=== PATIENT | female | born 1930 | race Caucasian/White ===

== ENCOUNTER 2017-12-15 20:26 | Inpatient (IN) | payer MEDICARE ==
[~2017-12-15] VITALS: Wt 54.4 kg
--- NOTE | ~2017-12-15 | PR ---
[place], [place] PROGRESS NOTE NAME: ROMANA FOX UNIT #: [id number] ROOM: 312 DOCTOR: DAVID RAMIREZ MD BIRTHDATE: [birth year] DOS: 12/21/2017 CHIEF COMPLAINT: "Oh, HI there, how are you." SUMMARY OF THE VISIT: The patient was interviewed as she sat in the dining area. She was pleasant upon approach and engaged readily in conversation with me. Some of it made sense, other times she tended to ramble and did not make sense. Nurses report she seems to alternate, having a good evening where she sleeps well and is not agitated, with an evening when she is not sleeping and she becomes increasingly agitated and sundowns. MENTAL STATUS: She is alert and oriented to person, possibly place, although it is doubtful, certainly not time. Mood does seem to be trending gradually towards euthymia. Affect is more appropriate. There is no manish or hypomania. No gross psychosis. Short term memory is exceedingly poor. PLAN: Her valproic acid level was therapeutic at 76.9, so I will maintain her current level. I will increase Cymbalta to 60 mg in the morning and 30 mg at night, attempting to control pain, improve mood and improve sleep. GFR is normal, so we should safely be able to do so. We will engage in individual and garcia milieu activity, returning to the least restrictive environment when psychiatrically stable. DAVID RAMIREZ MD CM:PNTRANS [id number] DAVID RAMIREZ MD 12/21/17 1316 interface
--- NOTE | ~2017-12-15 | PR ---
[place], [place] PROGRESS NOTE NAME: ROMANA FOX UNIT #: [id number] ROOM: 312 DOCTOR: DAVID RAMIREZ MD BIRTHDATE: [birth year] DOS: 12/27/2017 CHIEF COMPLAINT: The patient was extremely somnolent." SUMMARY OF THE VISIT: The patient was sitting in her Nasreen chair resting. She was extremely somnolent. Multiple attempts to verbally prompt her and then to prompt her physically were met with little to no interaction. The patient did receive a p.r.n. yet again in the middle of the night because of increased agitation. Nurses report that she does tend to be rather drowsy most mornings, but by afternoon, she wakes up and has been able to engage more readily in activities. She does still have her bouts where she becomes very agitated and labile, but they report that the frequency and intensity of these bouts seem to be lessening. The Cymbalta has impacted positively on pain control, which has also decreased some of these bouts. MENTAL STATUS: Limited because of her overall level of somnolence. PLAN: I will go ahead and lower her p.r.n. Ativan from 1 mg p.o. or IM every 4 hours as needed to 0.5 mg p.o. or IM every 4 hours as needed to see if we can strike a balance. She seems extremely sedate each morning and yet requires some type of p.r.n. intervention to prevent harm to self and others in the middle of the night. If we can strike a fine balance, then we will proceed with discharge to the least restrictive environment. DAVID RAMIREZ MD CM:PNTRANS [id number] 1000 DAVID RAMIREZ MD 12/27/17 1000 interface
--- NOTE | ~2017-12-15 | WRIGHTHP ---
[place], [place] PATIENT HISTORY AND PHYSICAL EXAM NAME: ROMANA FOX UNIT #: [id number] ROOM: 312 DOCTOR: DAVID RAMIREZ MD BIRTHDATE: [birth year] DOS: 12/16/2017 CHIEF COMPLAINT: The patient was nonverbal. HISTORY OF PRESENT ILLNESS: This is an 87-year-old white female, resident of [facility], who was sent here on an involuntary basis due to increased level of confusion and agitation. The patient has been actively voicing a wish to and stating that she is depressed and does not want to go on. The patient has either been falling or throwing herself to the ground more frequently there. Some of the behavior seems to stem from a recent switch in long-term care facilities. Since she has been at [facility], these behaviors have been relatively of new onset. The patient has also become verbally and physically aggressive toward staff and has been striking out at staff. Attempts to redirect have been met with her further escalating. She is admitted now to rule out organic factors and to stabilize on medication. PAST MEDICAL HISTORY: Remarkable for gait disturbance, AFib, generalized anxiety disorder, osteoarthritis, vascular dementia, and vitamin D deficiency. MENTAL STATUS: Upon admission, at this point in time as I attempted to engage the patient in conversation, she was nonverbal. DIAGNOSIS: Brief psychotic disorder. PLAN: At this point in time, I will discontinue her Depakote. I did raise it slightly from her level at the intermediate. She does seem to be somewhat somnolent. I will, however, increase her Cymbalta from 30 to 60 mg at bedtime in an effort to combat the depressive symptomatology. We will attempt to engage her in individual and garcia milieu activity with the ultimate plan to return to the least restrictive environment when psychiatrically stable. DAVID RAMIREZ MD CM:HISPHYS:PATIENT HISTORY AND PHYSICAL EXAMINATION 1002 1017 DAVID RAMIREZ MD 12/16/17 1015 interface
--- NOTE | ~2017-12-15 | PR ---
[place], [place] PROGRESS NOTE NAME: ROMANA FOX UNIT #: [id number] ROOM: 312 DOCTOR: DAVID RAMIREZ MD BIRTHDATE: [birth year] DOS: 12/23/2017 CHIEF COMPLAINT: "Good morning." SUMMARY OF THE VISIT: The patient was interviewed as she sat in a Nasreen chair in the dining area. She was initially sleeping, but awoke and engaged in conversation, albeit rather short and simple. She voiced no complaints. She reports sleeping well at night and having breakfast, although she could not tell me what she had for breakfast. MENTAL STATUS: She remains alert and oriented to self. It is unclear if she realizes she is in the hospital. She is certainly not oriented to time. Responses are short and simple. Some of this is because of her somnolence this morning. There was no agitation or aggression. There was no hypomania or manish. There were no auditory or visual hallucinations, delusions or paranoia. Short-term memory has gaps, otherwise she is intact. PLAN: I will renew her Ativan p.r.n. in case she requires intervention. I will go ahead and lower her Cymbalta from 90 mg at bedtime down to 60 to try to lessen some of her somnolence. We will continue to engage her in individual and garcia milieu activity with the ultimate plan to discharge to the least restrictive environment when psychiatrically stable. DAVID RAMIREZ MD CM:PNTRANS [id number] DAVID RAMIREZ MD 12/23/17 1004 interface
--- NOTE | ~2017-12-15 | PR ---
[place], [place] PROGRESS NOTE NAME: ROMANA FOX UNIT #: [id number] ROOM: 312 DOCTOR: DAVID RAMIREZ MD BIRTHDATE: [birth year] DOS: 12/29/2017 CHIEF COMPLAINT: The patient was somnolent once again. SUMMARY OF THE VISIT: The patient was resting quietly in a Nasreen chair. Nurses report that she on a positive note slept through the entire night with the Ambien. This morning, however, she remains very somnolent. This seems to be an ongoing pattern in that her mornings tend to be filled with her being rather sedate. Nurses do report that as the day progresses, she becomes much more alert and has been more interactive with less bouts of screaming and yelling. They seem to be lessening both in frequency and intensity. Other than the somnolence in the morning, she does not seem to be experiencing any other side effects from the medication. MENTAL STATUS: It is limited due to her overall level of somnolence once again. PLAN: We will continue to support and monitor. Given the fact that this amount of somnolence lessons as the day progresses and she is able to have meaningful conversation and interaction as the day progresses. We will continue to monitor this progression. We will proceed with discharge then when psychiatrically stable. DAVID RAMIREZ MD CM:PNTRANS [id number] DAVID RAMIREZ MD 12/29/17 1036 interface
--- NOTE | ~2017-12-15 | PR ---
[place], [place] PROGRESS NOTE NAME: ROMANA FOX UNIT #: [id number] ROOM: 312 DOCTOR: DAVID RAMIREZ MD BIRTHDATE: [birth year] DOS: 12/26/2017 CHIEF COMPLAINT: "The patient was somnolent and sleeping." SUMMARY OF THE VISIT: The patient was attempted to be interviewed as she rested in a Nasreen chair waiting for breakfast in the dining area. Despite multiple attempts to awaken her, I was only able to get her to open her eyes once and mouth the word morning to me. Nurses report, she seems to alternate between being either excessively tired or very agitated and yelling with the peak behavior occurring in the late afternoon or early evening. MENTAL STATUS: Limited by her overall level of somnolence. PLAN: I will attempt to change her medicine, so that most of the medication is being given at around 4 or 5 p.m. I will therefore change the Cymbalta from being given at 60 mg in the morning to being given at 1700 hours, also change Depakote to be 250 mg q.12h. with 500 mg dose being given at 1700 hours. We will monitor for risk and benefit. We will evaluate if this dosing of medication is effective at decreasing her use of p.r.n. and decreasing her mood lability, returning to the least restrictive environment when psychiatrically stable. DAVID RAMIREZ MD CM:PNTRANS 0938 DAVID RAMIREZ MD 12/26/17 0937 interface
--- NOTE | ~2017-12-15 | PR ---
[place], [place] PROGRESS NOTE NAME: ROMANA FOX UNIT #: [id number] ROOM: 312 DOCTOR: DAVID RAMIREZ MD BIRTHDATE: [birth year] DOS: 12/24/2017 CHIEF COMPLAINT: "Morning." SUMMARY OF THE VISIT: The patient was interviewed as she reclined in a Nasreen chair in the dining area. She was sleeping at first, but did awake upon my approach. Her responses were short simple. She was pleasant and cooperative. There was no agitation or aggression. MENTAL STATUS: She remains alert and oriented to self. Unclear if she realizes currently she is in the hospital. She is certainly not oriented to time. Mood does seem to be fairly euthymic. Affect is appropriate. There is no manish or hypomania. No psychotic symptoms. Short-term memory is poor, intermediate and long-term are intact. PLAN: Her valproic acid level is nicely therapeutic at 79. I will maintain her current psychotropic regimen as it. Continue to engage in individual and garcia milieu activity, returning to the least restrictive environment when psychiatrically stable. DAVID RAMIREZ MD CM:PNTRANS [id number] 0 DAVID RAMIREZ MD 12/24/17920 interface
--- NOTE | ~2017-12-15 | PR ---
[place], [place] PROGRESS NOTE NAME: ROMANA FOX UNIT #: [id number] ROOM: 312 DOCTOR: DAVID RAMIREZ MD BIRTHDATE: [birth year] DOS: 12/25/2017 CHIEF COMPLAINT: The patient was very somnolent this morning. SUMMARY OF THE VISIT: The patient was attempted to be interviewed. She was eating with the help of a nurse's aide. She made little attempt to converse or even make eye contact. Nurses continue to report that she seems to vacillate between either yelling nonstop without being able to be redirected or being rather somnolent. MENTAL STATUS: My mental status examination is limited by her level of being uncooperative as well as being somewhat somnolent. PLAN: I will go ahead and change the timing of the Cymbalta, to be given 60 mg in the morning. If she is having significant pain issues, which there does seem to be a pain component here, this should help with the control of her pain and make her more comfortable. At nighttime, I will add Rozerem 8 mg at bedtime to help initiate sleep and see if we can get ahead of this significant mood lability. We will continue to attempt to engage in individual and garcia milieu activity, returning to the least restrictive environment when psychiatrically stable. DAVID RAMIREZ MD CM:PNTRANS 0845 6 DAVID RAMIREZ MD 12/25/17926 interface
--- NOTE | ~2017-12-15 | DS ---
[place], [place] DISCHARGE SUMMARY NAME: ROMANA FOX UNIT #: [id number] ROOM: 312 DOCTOR: DAVID RAMIREZ MD BIRTHDATE: [birth year] DOS: 12/30/2017 CHIEF COMPLAINT: The patient was nonverbal. HISTORY OF PRESENT ILLNESS: This is an 87-year-old white female who is a resident of [facility]. She was sent to the [facility] on an involuntary basis due to an increased level of confusion and agitation. The patient had been actively voicing a wish to and stating that she is depressed and does not want to go on any longer. She has either been falling repeatedly or throwing herself to the ground. Some of this behavior seems to switch from a recent switch in long-term care facilities. The patient just recently was admitted to [facility]. The patient has been verbally and physically aggressive towards staff there, striking out during care and very resistive to care. Attempts to redirect have only caused her to escalate. She has also been screaming out loudly and disrupting the entire garcia milieu. She is admitted now to the [facility] to rule out any organic factors, to stabilize on medication, to engage in individual and garcia milieu activity, then determining the best placement post-discharge. PAST MEDICAL HISTORY: Remarkable for gait disturbance, atrial fibrillation, generalized anxiety disorder, osteoarthritis, vascular dementia and vitamin D deficiency. SUMMARY OF HOSPITAL COURSE: The patient was admitted to the unit where she was continued on her Cymbalta and the dose of Cymbalta was gradually increased from 30 to 60 and ultimately to 90 mg a day. Depakote was also utilized throughout her stay in an effort to decrease her mood lability and the combination of Exelon patch and Namenda was utilized to improve and maintain ADLs, behavior and cognition. The patient, however, continued to have very poor late afternoon, early evenings and even going into the wee hours of the morning. She would be yelling so loudly and not redirecting that she very frequently would require p.r.n. intervention, which would be effective, but would cause somnolence the next day. For this reason, her baseline medication doses were lowered. Cymbalta was ultimately lowered from 90 mg daily down to 60 mg a day to lessen the possibility of augmenting the sedation. First of all, Ambien was utilized as a sleep aid. However, this was ineffective and did cause her to be excessively somnolent for a period in excess of 12 hours. Ambien was discontinued in lieu of Rozerem 8 mg at bedtime with excellent results. Nurses did report that on the nights that she took the Rozerem she fell asleep, she slept through the night and woke up in the morning more interactive, able to eat with assistance. Her screaming episodes decreased dramatically in frequency and intensity and she was able to be redirected. The patient gradually improved and with this combination of medications to the point where she could return back to [facility] where her is currently residing, so that they can be together. MENTAL STATUS AT DISCHARGE: The patient is alert and oriented. She is able to voice very simple responses most of the time, very vague or yes and no responses. She was pleasant, however, and offered no complaints. There was no agitation, rather it be verbal or physical. It was very difficult to ascertain [place], [place] DISCHARGE SUMMARY NAME: ROMANA FOX UNIT #: [id number] ROOM: 312 DOCTOR: DAVID RAMIREZ MD BIRTHDATE: [birth year] memory function because of her limited responses. DIAGNOSES UPON DISCHARGE: Major depression, recurrent, severe and Alzheimer's dementia. PLAN: The patient will be discharged to [facility]. All of her prescriptions have been printed and will be sent with her. I will follow her upon her readmission to [facility]. Medically and psychiatrically the patient is stable. Her biopsychosocial needs will be met by the facility. DAVID RAMIREZ MD CM:DISCHARG 2 4 DAVID RAMIREZ MD 12/30/17914 interface
--- NOTE | ~2017-12-15 | PR ---
[place], [place] PROGRESS NOTE NAME: ROMANA FOX UNIT #: [id number] ROOM: 312 DOCTOR: DAVID RAMIREZ MD BIRTHDATE: [birth year] DOS: 12/19/2017 CHIEF COMPLAINT: "Good morning, how are you." SUMMARY OF THE VISIT: The patient was interviewed as she sat in the dining room. She had just completed all of her breakfast. She was bright and pleasant upon approach. There was much less mood lability and agitation. Nurses still report that she has episodic periods of agitation. Some of this seems to be worsening in the late afternoon early evening. MENTAL STATUS: She is alert and oriented to person, possibly place, but not to time. Mood does seem to be trending towards euthymia. Affect is more appropriate. There is no manish or hypomania. There are no overt auditory or visual hallucinations, delusions or paranoia. She does process information slowly and short term memory is exceedingly poor as well. PLAN: Her valproic acid level is subtherapeutic at 42.2. I will therefore increase her Depakote from 250 mg 3 times a day to 250 mg twice daily and 500 mg at bedtime. I will continue to engage in individual and garcia milieu activity with the ultimate plan to return to the least restrictive environment when psychiatrically stable. DAVID RAMIREZ MD CM:PNTRANS 7 DAVID RAMIREZ MD 12/19/1730 interface
--- NOTE | ~2017-12-15 | PR ---
[place], [place] PROGRESS NOTE NAME: ROMANA FOX UNIT #: [id number] ROOM: 312 DOCTOR: DAVID RAMIREZ MD BIRTHDATE: [birth year] DOS: 12/20/2017 CHIEF COMPLAINT: "Good morning." SUMMARY OF THE VISIT: The patient was interviewed in the dining area. She was sitting looking straight ahead. As I attempted to engage her on multiple occasions including speaking directly into her ear, she seemed very perplexed and bewildered. More often than not, she did not respond whatsoever to my prompting her with questions. She was pleasant, however, and offered no agitation or attempts to strike out. Nurses report that she does have episodes of combativeness, but these have become less intense and less frequent. She does seem to be tolerating her current medication regimen well. MENTAL STATUS: She is alert and oriented at least to self. Mood does seem to be trending towards euthymia. Affect is more appropriate. There is no manish or hypomania. There are no overt auditory or visual hallucinations. She does process extremely slow and has sparsity of thoughts. Memory was hard to totally assess due to her lack of cooperation. PLAN: I will check a valproic acid level in the morning to ensure that it is therapeutic, continue to engage in individual and garcia milieu activity with the plan to return to the least restrictive environment when psychiatrically stable. DAVID RAMIREZ MD CM:PNTRANS 1015 1023 DAVID RAMIREZ MD 12/20/17 1021 interface
--- NOTE | ~2017-12-15 | PR ---
[place], [place] PROGRESS NOTE NAME: ROMANA FOX UNIT #: [id number] ROOM: 312 DOCTOR: DAVID RAMIREZ MD BIRTHDATE: [birth year] DOS: 12/17/2017 CHIEF COMPLAINT: "Can you help me, Can you help me please?" SUMMARY OF THE VISIT: The patient was interviewed as she sat in a Nasreen chair waiting for breakfast. She was banging on it minimally and did stop as I redirected her. Nurses report she is much more awake, much more irritable and labile, verbally and physically aggressive at times. MENTAL STATUS: She is alert and oriented to self. It is unclear if she realizes she is in the hospital. She is certainly not oriented to time. Mood is labile. Affect is inappropriate. Mood swings are rather prominent and significant. There does not appear to be any auditory or visual hallucinations, delusions or paranoia. She does process slowly and short term memory is exceedingly poor. PLAN: I will go ahead and increase Namenda to 15 mg a day with the target dose of 20 mg a day in mind, so it augments the effectiveness of the Exelon patch. I will add Depakote 250 mg 3 times daily to decrease mood lability, attempt to engage in individual and garcia milieu activity with the plan to return to the least restrictive environment when psychiatrically stable. DAVID RAMIREZ MD CM:PNTRANS [id number] 09 DAVID RAMIREZ MD 12/17/17 09 interface
--- NOTE | ~2017-12-15 | PR ---
[place], [place] PROGRESS NOTE NAME: ROMANA FOX UNIT #: [id number] ROOM: 312 DOCTOR: DAVID RAMIREZ MD BIRTHDATE: [birth year] DOS: 12/28/2017 CHIEF COMPLAINT: The patient was nonverbal, but was interacting with the nurse's aide. SUMMARY OF THE VISIT: The patient was attempted to be interviewed as she sat in the dining area watching television and eating breakfast with the help of the nurse's aide. She consistently took bite after bite, but would not open her eyes and she would not verbalize to either of us. Nurses report she had yet again another bad evening where she was up throughout the night, yelling and screaming. Attempts to redirect her were unsuccessful and she did require p.r.n. intervention yet again. This nighttime behavior continues to be problematic and fairly consistent. MENTAL STATUS: She is alert and oriented to self. The remainder of the mental status is limited due to her lack of participation. PLAN: I will go ahead and order Ambien 5 mg at the hour of sleep to see if we can head off this behavior. If we are giving this at 2200 hours, hopefully this will allow her to sleep through the night, so she does not require p.r.n. intervention at 2 or a.m. We will continue to attempt to engage her in individual and garcia milieu activity with the plan to return to the least restrictive environment when psychiatrically stable. DAVID RAMIREZ MD CM:PNTRANS [phone] DAVID RAMIREZ MD 12/28/17 0958 interface
--- NOTE | ~2017-12-15 | PR ---
[place], [place] PROGRESS NOTE NAME: ROMANA FOX UNIT #: [id number] ROOM: 312 DOCTOR: DAVID RAMIREZ MD BIRTHDATE: [birth year] DOS: 12/17/2017 CHIEF COMPLAINT: "Morning." SUMMARY OF THE VISIT: The patient was interviewed as she rested quietly in her bed. She was pleasant upon approach and offered no complaints. Nurses report that she had an up and down day yesterday with some agitation, and yelling out, redirection at times was very problematic. MENTAL STATUS: She is alert and oriented to person, possibly place, not to time. Mood does still seem to be labile. Affect is inappropriate. Mood swings are prominent. There are no psychotic symptoms noted. She does process information slowly. Short term memory remains poor. PLAN: I will increase Namenda to its maximum dose of 10 mg b.i.d. to augment the effectiveness of the Exelon patch, which is at 13.3 mg daily, its maximum dose. I will check a valproic acid level in the a.m. to ensure that it is therapeutic. Continue to engage in individual and garcia milieu activities with the plan to return to the least restrictive environment when psychiatrically stable. DAVID RAMIREZ MD CM:PNTRANS 0837 1030 DAVID RAMIREZ MD 12/18/17 1028 interface
--- NOTE | ~2017-12-15 | PR ---
[place], [place] PROGRESS NOTE NAME: ROMANA FOX UNIT #: [id number] ROOM: 312 DOCTOR: DAVID RAMIREZ MD BIRTHDATE: [birth year] DOS: 12/22/2017 CHIEF COMPLAINT: "Morning." SUMMARY OF THE VISIT: The patient was interviewed in her bedroom where she was resting quietly in bed. She did awaken and engage in brief, very superficial conversation. At times, she weaned off and fell asleep mid sentence. Staff continue to report that she has good days and bad days and they seem almost alternate with each other. MENTAL STATUS: Limited due to her sedation this morning. PLAN: I will renew her Ativan p.r.n. in case she requires intervention. I will recheck a valproic acid level tomorrow morning to make certain it remains therapeutic and not too high. Last level was therapeutic. We will continue to engage her in individual and garcia milieu activity with the plan to return to the least restrictive environment when psychiatrically stable. DAVID RAMIREZ MD CM:PNTRANS 1117 1125 DAVID RAMIREZ MD 12/22/17 1125 interface
[2017-12-15 20:26] VITALS: BP 134/73
[~2017-12-15 20:26] MED LIST: ATIVAN0.5 MG PO
[2017-12-15 21:10] LABS: BASO # 0.1 10*3/uL (0.0-0.1); BASO % 0.8 % (0.0-1.0); EOS # 0.1 10*3/uL (0.0-0.4); EOS % 1.4 % (1.0-4.0); HEMATOCRIT 38.8 % (37.0-47.0); HEMOGLOBIN 11.9 g/dl (12.0-16.0); LYMPH # 1.4 10*3/uL (1.3-4.4); MEAN CELL VOLUME 89.8 fl (81.0-99.0); MEAN CORPUSCULAR HGB 27.5 pg (27.0-31.0); MEAN CORPUSCULAR HGB CONC 30.7 g/dl (33.0-37.0); MEAN PLATELET VOLUME 11.3 fl (9.6-12.3); MONO # 0.9 10*3/uL (0.1-1.0); MONO % 9.2 % (3.0-9.0); NEUT # 7.3 10*3/uL (2.3-7.9); NEUT % 74.3 % (47.0-73.0); PLATELET COUNT AUTOMATED 330 10*3/uL (130-400); RED BLOOD COUNT 4.32 10*6/uL (4.10-5.10); RED CELL DISTRI WIDTH 16.2 % (0-14.5); WHITE BLOOD COUNT 9.8 10*3/uL (4.8-10.8)
[2017-12-15 21:24] LABS: BUN 12 mg/dl (7-24); CHLORIDE 104 mmol/L (98-107); CREATININE 0.88 mg/dL (0.55-1.02); POTASSIUM 3.9 mmol/L (3.5-5.1); SODIUM 141 mmol/L (136-145)
[2017-12-15 21:26] LABS: ACETAMINOPHEN (TYLENOL) < 2.0 ug/ml (10-30); ETHYL ALCOHOL < 3.0 mg/dl (<3)
[2017-12-15 21:53] LABS: BILIRUBIN NEGATIVE (NEGATIVE); BLOOD 1+ (NEGATIVE); CLARITY SL CLOUDY (CLEAR); COLOR YELLOW (YELLOW); GLUCOSE NEGATIVE (NEGATIVE); KETONE TRACE (NEGATIVE); LEUKO ESTERASE 2+ (NEGATIVE); NITRITE POSITIVE (NEGATIVE); SPECIFIC GRAVITY 1.025 (1.005-1.030)
[2017-12-15 21:59] LABS: BACTERIA 4+; EPITHELIAL CELLS 0-2; WBC TNTC wbc/hpf (0-5)
[2017-12-15 22:02] LABS: URINE AMPHETAMINES < 1000 (1000ng/ml); URINE BARBITURATES < 200 (200ng/ml); URINE BENZODIAZEPINES < 200 (200ng/ml); URINE CANNABINOIDS (THC) < 50 (50ng/ml); URINE COCAINE < 300 (300ng/ml); URINE METHADONE < 300 (300ng/ml); URINE OPIATES < 300 (300ng/ml)
[2017-12-15 22:04] LABS: URINE PHENCYCLIDINE < 25 (25ng/ml)
[2017-12-15 22:05] VITALS: BP 142/78
[2017-12-15 23:25] VITALS: BP 145/87
[2017-12-15 23:51] VITALS: BP 137/81
[2017-12-16 01:14] VITALS: BP 133/64
[2017-12-16 01:16] VITALS: BP 133/64
[2017-12-16] MEDS ORDERED: VITAMIN D34000 UNIT PO (01:41)
[2017-12-16] MEDS ORDERED: CYMBALTA30 MG PO (01:42)
[2017-12-16] MEDS ORDERED: DEPAKOTE125 MG PO (01:44)
[2017-12-16] MEDS ORDERED: DEPAKOTE250 MG PO (01:44)
[2017-12-16] MEDS ORDERED: EXEL13.31 TD (01:46)
[2017-12-16] MEDS ORDERED: NAMENDA-7 PO (01:47)
[2017-12-16 07:43] VITALS: BP 139/76
[2017-12-16 07:46] LABS: ALBUMIN 2.2 gm/dl (3.1-4.5); ALKALINE PHOSPHATASE 135 U/L (45-117); BUN 11 mg/dl (7-24); CHLORIDE 105 mmol/L (98-107); CHOLESTEROL 104 mg/dL (<200); CREATININE 0.74 mg/dL (0.55-1.02); HDL CHOLESTEROL 35 mg/dl (40-60); LDL CHOLESTEROL 56 mg/dL (9-159); POTASSIUM 3.8 mmol/L (3.5-5.1); SGOT/AST 13 IU/L (3-35); SGPT/ALT 10 U/L (12-78); SODIUM 141 mmol/L (136-145); TOTAL PROTEIN 6.6 gm/dL (6.4-8.2); TRIGLYCERIDES 67 mg/dl (<150); VLDL CHOLESTEROL 13 mg/dL (6-40)
[2017-12-16 21:37] VITALS: BP 130/62
[2017-12-17 07:36] VITALS: BP 130/78
[2017-12-17 20:00] VITALS: BP 122/54
[2017-12-18 08:06] VITALS: BP 132/76
[2017-12-18 20:28] VITALS: BP 113/61
[2017-12-19 07:41] VITALS: BP 121/74
[2017-12-19 19:45] VITALS: BP 119/82
[2017-12-20 07:38] VITALS: BP 119/82
[2017-12-20 21:32] VITALS: BP 124/80
[2017-12-21 08:20] VITALS: BP 139/69
[2017-12-21 23:16] VITALS: BP 122/62
[2017-12-22 07:53] VITALS: BP 124/80
[2017-12-22 20:15] VITALS: BP 113/62
[2017-12-23 07:58] VITALS: BP 118/66
[2017-12-23 20:00] VITALS: BP 122/64
[2017-12-24 07:53] VITALS: BP 126/72
[2017-12-24 20:11] VITALS: BP 120/62
[2017-12-25 07:50] VITALS: BP 126/62
[2017-12-25 20:00] VITALS: BP 127/68
[2017-12-26 07:37] VITALS: BP 132/66
[2017-12-26 20:00] VITALS: BP 127/63
[2017-12-27 08:06] VITALS: BP 122/68
[2017-12-27 21:39] VITALS: BP 125/70
[2017-12-28 07:59] VITALS: BP 124/72
[2017-12-28 21:11] VITALS: BP 105/69
[2017-12-29 08:11] VITALS: BP 131/95
[2017-12-29 19:20] VITALS: BP 107/56
[2017-12-30 07:47] VITALS: BP 110/66
[2017-12-30] MEDS ORDERED: ROZEREM8 MG PO (08:16)
[2017-12-30] MEDS ORDERED: DIVALPROEX SOD125 M1 PO ×2 (08:16)
[2017-12-30] MEDS ORDERED: DULOXETINE HCL60 MG PO (08:16)
[2017-12-30] MEDS ORDERED: EXELON13.3 MG/21 T (08:16)
[2017-12-30] MEDS ORDERED: MEMANTINE HCL10 MG PO (08:16)
== END 2017-12-30 13:21 | disposition other institution (70) | DRG 885 ==
LOC: ED 20:26 → 3N 12-16 00:17
PROVIDERS: Emergency Medicine; Psychiatry & Neurology Psychiatry
DX: F33.2 Major depressive disorder, recurrent severe without psychotic features (principal); G30.9 Alzheimer's disease, unspecified; F01.51 Vascular dementia, unspecified severity, with behavioral disturbance; I27.20 Pulmonary hypertension, unspecified; I48.91 Unspecified atrial fibrillation; F02.81 Dementia in other diseases classified elsewhere, unspecified severity, with behavioral disturbance; N39.0 Urinary tract infection, site not specified; F23 Brief psychotic disorder; D72.810 Lymphocytopenia; R26.2 Difficulty in walking, not elsewhere classified; D72.821 Monocytosis (symptomatic); F41.1 Generalized anxiety disorder; M19.90 Unspecified osteoarthritis, unspecified site; Z96.652 Presence of left artificial knee joint; E55.9 Vitamin D deficiency, unspecified; R73.9 Hyperglycemia, unspecified; R80.9 Proteinuria, unspecified; Z79.899 Other long term (current) drug therapy